=== PATIENT | male | born 1990 | race Caucasian/White ===

== ENCOUNTER 2025-03-29 05:24 | Observation (INO) ==
[2025-03-29] MEDS ORDERED: ULTANE GAS IN ONE (05:25)
[2025-03-29] MEDS ORDERED: PRECEDEX INJ VIAL ONE (05:25)
[2025-03-29] MEDS ORDERED: KETAMINE HCL ONE (05:25)
[2025-03-29 05:40] VITALS: BMI 42.7
--- NOTE | 2025-03-29 05:46 | DR.ABDMALE ---
HPI <Shayna Dennis - Last Filed: 04/04/25 20:39> Time seen Time Seen by Provider: 03/29/25 05:46 PCP Primary Care Physician: AZRA VELAZQUEZ comment HPI Comment: 34 y/o awakened with epigastric pain, n/v at 3AM this morning as below; he's had no sob, significant cough, diarrhea, fever or chills; he denies similar episodes and burping does not help with pain. Complaint Chief Complaint:: PATIENT C/O EPIGASTRIC PAIN ASSOCIATED WITH NAUSEA AND VOMITING. PATIENT STATES HE WAS WOKEN UP WITH THE SEVERE PAIN AT 3 AM. PATIENT ALSO STATES HE IS HAVING CHILLS. PATIENT NOTED TO BE DIAPHORTEIC. COVID-19 Coronavirus risk:travel/contact w/high risk person: No Has patient experienced Coronavirus symptoms: No Mode of arrival Mode of Arrival: Ambulatory Timing Onset of Chief Complaint: 03/29/25 PMH <Shayna Dennis - Last Filed: 04/04/25 20:39> PMH Past Medical History: Yes Past Medical History: Hypertension Past Surgical History: No Family History History of Family Medical Conditions: Yes Family Medical History: Diabetes Mellitus, OR, Coronary Artery Disease and Heart Failure Social History Does any household member use tobacco: No Alcohol Use: None Do you use any recreational Drugs:: No Lives With: Family Lives Where: Home Travel Risk Coronavirus risk:travel/contact w/high risk person: No Has patient experienced Coronavirus symptoms: No Infectious screening In the last 2 months have you had wt loss of >10#?: NO Have you had fever, night sweats or hemotysis?: No Have you traveled outside the country in the last 6 months?: No Isolation: Standard ROS <Shayna Sonny - Last Filed: 04/04/25 20:39> Review of Systems Constitutional: No Symptoms Reported Eyes: No Symptoms Reported ENTM: No Symptoms Reported Respiratoy: No Symptoms Reported Cardiovascular: No Symptoms Reported Neurological: No Symptoms Reported Musculoskeletal: No Symptoms Reported Integumentary: No Symptoms Reported Hematologic/Lymphatic: No Symptoms Reported Endocrine: No Symptoms Reported Psychiatric: No Symptoms Reported PE <Shayna Sonny - Last Filed: 04/04/25 20:39> Vital Signs Vital Signs: Temp Pulse Resp BP Pulse Ox O2 Del Method 03/29/25 10:59 16 03/29/25 09:00 16 03/29/25 08:58 16 03/29/25 07:26 12 03/29/25 07:15 76 03/29/25 07:00 69 10 L 97 03/29/25 06:45 67 15 99 03/29/25 06:30 71 5 L 99 03/29/25 06:30 152/78 03/29/25 06:15 98 H 21 98 03/29/25 06:02 73 34 H 100 03/29/25 06:00 159/93 03/29/25 06:00 159/93 03/29/25 06:00 159/93 03/29/25 05:55 69 24 100 03/29/25 05:50 75 26 H 99 03/29/25 05:37 68 20 100 03/29/25 05:35 173/96 03/29/25 05:35 173/96 03/29/25 05:24 97.8 F 75 20 162/82 98 Room Air General Limitations: No Limitations General Appearance: Alert and In No Apparent Distress Head Head Exam: Normal Inspection Eyes Eye exam: Normal Appearance ENT ENT Exam: Normal Exam Neck Neck Exam: Normal Inspection Chest Chest Inspection: Normal Inspection Respiratory Respiratory Exam: Normal Lung Sounds Bilat Cardiovascular Cardiovascular Exam: Regular Rate and Normal Rhythm Abdominal Exam Abdominal Exam: Normal Inspection and Normal Bowel Sounds Abdominal Tenderness: Epigastrium (mildly tender) Rectal Rectal Exam: Deferred Back Back Exam: Normal Inspection Extremeties Extremities Exam: Normal Inspection Exam: Male: Deferred Neurologic Neurological Exam: Alert and Oriented X3 Psychiatric Psychiatric Exam: Normal Affect and Normal Mood Skin Skin Exam: Warm, Dry, Intact and Normal Color <Minh Muñoz - Last Filed: 03/29/25 11:48> Vital Signs Vital Signs: Temp Pulse Resp BP Pulse Ox O2 Del Method 03/29/25 10:59 16 03/29/25 09:00 16 03/29/25 08:58 16 03/29/25 07:26 12 03/29/25 07:15 76 03/29/25 07:00 69 10 L 97 03/29/25 06:45 67 15 99 03/29/25 06:30 71 5 L 99 03/29/25 06:30 152/78 03/29/25 06:15 98 H 21 98 03/29/25 06:02 73 34 H 100 03/29/25 06:00 159/93 03/29/25 06:00 159/93 03/29/25 06:00 159/93 03/29/25 05:55 69 24 100 03/29/25 05:50 75 26 H 99 03/29/25 05:37 68 20 100 03/29/25 05:35 173/96 03/29/25 05:35 173/96 03/29/25 05:24 97.8 F 75 20 162/82 98 Room Air COURSE <Shayna Dennis - Last Filed: 04/04/25 20:39> Treatment Treatment: 34 y/o with epigastric pain presumably d/t gerd but no relief with protonix and gi cocktail; down for us of gb at this time; care to Dr Muñoz. ROR <Shayna Dennis - Last Filed: 04/04/25 20:39> Labs Reviewed 03/30/25 04:18 03/30/25 04:18 Laboratory: WBC 11.9 X10^3/uL (3.6-10.0) H 03/29/25 05:53 RBC 6.02 X10^6/uL (4.7-6.0) H 03/29/25 05:53 Hgb 18.0 g/dL (13.5-18.0) 03/29/25 05:53 Hct 51.6 % (42.0-54.0) 03/29/25 05:53 MCV 85.7 fL (80.0-100.0) 03/29/25 05:53 MCH 29.8 pg (27.0-34.0) 03/29/25 05:53 MCHC 34.8 g/dL (33.0-35.0) 03/29/25 05:53 RDW 14.0 % (11.6-16.5) 03/29/25 05:53 Plt Count 263 X10^3/uL (150.0-450.0) 03/29/25 05:53 MPV 8.8 fL (7.4-11.0) 03/29/25 05:53 Neut % (Auto) 71.7 % (42.0-75.0) 03/29/25 05:53 Lymph % (Auto) 21.2 % (21.0-51.0) 03/29/25 05:53 Imperial % (Auto) 5.6 % (0.0-13.0) 03/29/25 05:53 Eos % (Auto) 1.1 % (0.9-2.9) 03/29/25 05:53 Baso % (Auto) 0.4 % (0.2-1.0) 03/29/25 05:53 Neut # (Auto) 8.6 x10^3/uL (2.2-4.8) H 03/29/25 05:53 Lymph # (Auto) 2.5 X10^3/uL (1.3-2.9) 03/29/25 05:53 Imperial # (Auto) 0.7 x10^3/uL (0.3-0.8) 03/29/25 05:53 Eos # (Auto) 0.1 x10^3/uL (0.0-0.2) 03/29/25 05:53 Baso # (Auto) 0.0 X10^3/uL (0.0-0.1) 03/29/25 05:53 Absolute Nucleated RBC 0.1 /100WBC 03/29/25 05:53 Sodium 136 mmol/L (136-145) 03/29/25 05:53 Corrected Sodium TNP 03/29/25 05:53 Potassium 4.0 mmol/L (3.5-5.1) 03/29/25 05:53 Chloride 99 mmol/L (98-107) 03/29/25 05:53 Carbon Dioxide 33.9 mmol/L (21-32) H 03/29/25 05:53 BUN 9 mg/dL (7-18) 03/29/25 05:53 Creatinine 1.10 mg/dL (0.70-1.30) 03/29/25 05:53 Est GFR (MDRD) Af Amer > 60 (>60) 03/29/25 05:53 Est GFR (MDRD) Non-Af > 60 (>60) 03/29/25 05:53 Glucose 104 mg/dL (65-99) H 03/29/25 05:53 Calcium 9.5 mg/dL (8.5-10.1) 03/29/25 05:53 Corrected Calcium TNP 03/29/25 05:53 Total Bilirubin 0.20 mg/dL (0.2-1.0) 03/29/25 05:53 AST 23 Units/L (15-37) 03/29/25 05:53 ALT 42 Units/L (12-78) 03/29/25 05:53 Alkaline Phosphatase 74 Units/L (46-116) 03/29/25 05:53 Creatine Kinase 267 Units/L (39-308) 03/29/25 05:53 Troponin I High Sens 5.6 ng/L (4.0-60.0) 03/29/25 05:53 Total Protein 8.2 g/dL (6.4-8.2) 03/29/25 05:53 Albumin 4.5 g/dL (3.4-5.0) 03/29/25 05:53 Globulin 3.7 g/dL (2.5-4.5) 03/29/25 05:53 Albumin/Globulin Ratio 1.2 Ratio (1.1-2.1) 03/29/25 05:53 Lipase 46 Units/L (16-77) 03/29/25 05:53 Tissue Pathology See comment. 03/29/25 13:35 XRAY X-ray Results: pcxr: no acute abnormality abd us: Cholelithiasis without evidence of acute cholecystitis. Nuclear medicine HIDA scan could be obtained for further evaluation if clinical concern for acute cholecystitis. <Minh Muñoz - Last Filed: 03/29/25 11:48> Labs Reviewed Laboratory Results Reviewed?: Yes Laboratory: WBC 11.9 X10^3/uL (3.6-10.0) H 03/29/25 05:53 RBC 6.02 X10^6/uL (4.7-6.0) H 03/29/25 05:53 Hgb 18.0 g/dL (13.5-18.0) 03/29/25 05:53 Hct 51.6 % (42.0-54.0) 03/29/25 05:53 MCV 85.7 fL (80.0-100.0) 03/29/25 05:53 MCH 29.8 pg (27.0-34.0) 03/29/25 05:53 MCHC 34.8 g/dL (33.0-35.0) 03/29/25 05:53 RDW 14.0 % (11.6-16.5) 03/29/25 05:53 Plt Count 263 X10^3/uL (150.0-450.0) 03/29/25 05:53 MPV 8.8 fL (7.4-11.0) 03/29/25 05:53 Neut % (Auto) 71.7 % (42.0-75.0) 03/29/25 05:53 Lymph % (Auto) 21.2 % (21.0-51.0) 03/29/25 05:53 Imperial % (Auto) 5.6 % (0.0-13.0) 03/29/25 05:53 Eos % (Auto) 1.1 % (0.9-2.9) 03/29/25 05:53 Baso % (Auto) 0.4 % (0.2-1.0) 03/29/25 05:53 Neut # (Auto) 8.6 x10^3/uL (2.2-4.8) H 03/29/25 05:53 Lymph # (Auto) 2.5 X10^3/uL (1.3-2.9) 03/29/25 05:53 Imperial # (Auto) 0.7 x10^3/uL (0.3-0.8) 03/29/25 05:53 Eos # (Auto) 0.1 x10^3/uL (0.0-0.2) 03/29/25 05:53 Baso # (Auto) 0.0 X10^3/uL (0.0-0.1) 03/29/25 05:53 Absolute Nucleated RBC 0.1 /100WBC 03/29/25 05:53 Sodium 136 mmol/L (136-145) 03/29/25 05:53 Corrected Sodium TNP 03/29/25 05:53 Potassium 4.0 mmol/L (3.5-5.1) 03/29/25 05:53 Chloride 99 mmol/L (98-107) 03/29/25 05:53 Carbon Dioxide 33.9 mmol/L (21-32) H 03/29/25 05:53 BUN 9 mg/dL (7-18) 03/29/25 05:53 Creatinine 1.10 mg/dL (0.70-1.30) 03/29/25 05:53 Est GFR (MDRD) Af Amer > 60 (>60) 03/29/25 05:53 Est GFR (MDRD) Non-Af > 60 (>60) 03/29/25 05:53 Glucose 104 mg/dL (65-99) H 03/29/25 05:53 Calcium 9.5 mg/dL (8.5-10.1) 03/29/25 05:53 Corrected Calcium TNP 03/29/25 05:53 Total Bilirubin 0.20 mg/dL (0.2-1.0) 03/29/25 05:53 AST 23 Units/L (15-37) 03/29/25 05:53 ALT 42 Units/L (12-78) 03/29/25 05:53 Alkaline Phosphatase 74 Units/L (46-116) 03/29/25 05:53 Creatine Kinase 267 Units/L (39-308) 03/29/25 05:53 Troponin I High Sens 5.6 ng/L (4.0-60.0) 03/29/25 05:53 Total Protein 8.2 g/dL (6.4-8.2) 03/29/25 05:53 Albumin 4.5 g/dL (3.4-5.0) 03/29/25 05:53 Globulin 3.7 g/dL (2.5-4.5) 03/29/25 05:53 Albumin/Globulin Ratio 1.2 Ratio (1.1-2.1) 03/29/25 05:53 Lipase 46 Units/L (16-77) 03/29/25 05:53 Tissue Pathology See comment. 03/29/25 13:35 Opioid <Shayna Dennis - Last Filed: 04/04/25 20:39> Opioid Risk Tool Age (Damien box if 16-45): Yes History of Preadolescent Sexual Abuse: No Total: 1 Total Score Risk Category: Low Risk Copyright: Mario Alberto CROOK predicting aberrant behaviors <Minh Muñoz - Last Filed: 03/29/25 11:48> Opioid Risk Tool Total: 1 Total Score Risk Category: Low Risk Discharge Plan Diagnosis Discharge Problem: Cholelithiasis Discharge Plan Patient Disposition: ADMITTED INPATIENT Condition: Stable Orders to Discharge Patient Discharge Orders: Discharge (Routine); Ordered 03/30/25 Ordered By: ABENA PADILLA ADDITIONAL NOTES <Minh Toni - Last Filed: 03/29/25 11:48> Additional Notes Additional Notes: Spoke with Dr Padilla who agrees to take pt to surgery. Requests pt receive abx and make NPO.
[2025-03-29] MEDS ORDERED: PROTONIX INJ 40 MG VIAL ONE (05:47)
[2025-03-29] MEDS ORDERED: ZOFRAN INJ 4 MG VIAL ONE (05:47)
[2025-03-29] MEDS: ZOFRAN INJ 4 MG VIAL IVP ONE ×4 (05:57→10:59)
[2025-03-29] MEDS: PROTONIX INJ 40 MG VIAL IVP ONE (05:57)
--- NOTE | 2025-03-29 05:58 | EKG ---
Test Reason : epigastric pain Blood Pressure : */* mmHG Vent. Rate : 67 BPM Atrial Rate : 67 BPM P-R Int : 170 ms QRS Dur : 102 ms QT Int : 350 ms P-R-T Axes : 22 17 20 degrees QTc Int : 369 ms Normal sinus rhythm with sinus arrhythmia Normal ECG No previous ECGs available Confirmed by Jonathan Noguera MD ([id number]) on 03/29/2025 6:05:54 AM Referred By: Confirmed By: Jonathan Noguera MD
[2025-03-29 06:01] LABS: MEAN PLATELET VOLUME 8.8 fL (7.4-11.0); RED CELL DISTRIBUTION WIDTH 14.0 % (11.6-16.5)
[2025-03-29 06:17] LABS: CREATININE 1.10 mg/dL (0.70-1.30); eGFR NON BLACK RACES > 60 (>60)
[2025-03-29] MEDS: LEVSIN/MAALOX/LIDOC VISC PO ONE (07:26)
[2025-03-29] MEDS: MORPHINE SULFATE INJ 4 MG IVP ONE ×2 (08:58→10:59)
--- NOTE | 2025-03-29 10:32 | US ---
EXAM: GALL BLADDER HISTORY: epistric pain, n/v; EPIGASTRIC PAIN, N/V COMPARISON: None TECHNIQUE: Multiple king scale and color flow Doppler images of the right upper quadrant were obtained. FINDINGS: The liver is normal in size and increased in echotexture. Focal fatty sparing along the gallbladder fossa. No focal identifiable hepatic mass or intrahepatic biliary ductal dilatation. Cholelithiasis. No gallbladder wall thickening or pericholecystic fluid. The sonographic Monique's sign is reported as negative by the manager contact. The common bile duct is unremarkable measuring 0.3 cm. Limited visualized portions of the pancreas and IVC are unremarkable. The right kidney appears normal in size measuring up to 12.0 cm. No stones or hydronephrosis. IMPRESSION: Cholelithiasis without evidence of acute cholecystitis. Nuclear medicine HIDA scan could be obtained for further evaluation if clinical concern for acute cholecystitis. THIS IS AN ELECTRONICALLY VERIFIED FINAL REPORT 03/29/2025 10:28 AM - Electronically signed by Jeremy Bowden MD
[2025-03-29] MEDS: NS 1,000 ML IV 1,000 ML IV ONE (10:58)
[2025-03-29] MEDS: ZOSYN VIAL 3.375 GRAMS 3.375 G in NS 100 ML IV 100 ML IV ONE (10:59)
[2025-03-29] MEDS: NS 250 ML IV 25 ML IV PRN (11:03)
[2025-03-29] MEDS: DIPRIVAN VIAL 20 ML ONE (11:43)
[2025-03-29] MEDS: VERSED ONE (11:43)
[2025-03-29] MEDS: FENTANYL VIAL INJ 100 mcg ONE ×2 (11:43→12:47)
[2025-03-29] MEDS: BRIDION ONE (11:43)
[2025-03-29] MEDS: ZOFRAN INJ 4 MG VIAL ONE (11:43)
[2025-03-29] MEDS: OFIRMEV IV 1000 MG VIAL 1,000 MG/100 ML VIAL IV ONE (11:43)
[2025-03-29] MEDS: DECADRON INJ ONE (11:43)
[2025-03-29] MEDS: ZEMURON 100 MG VIAL ONE (11:43)
[2025-03-29] MEDS: REGLAN INJ 10 MG VIAL ONE (11:43)
[2025-03-29] MEDS: PEPCID 20 MG VIAL ONE (11:53)
[2025-03-29] MEDS: LR 1,000 ML IV 1,200 ML IV PRN (12:00)
[2025-03-29] MEDS: ZOFRAN INJ 4 MG VIAL IVP PRN ×2 (12:00→22:12)
[2025-03-29] MEDS: REGLAN INJ 10 MG VIAL IVP PRN (12:00)
[2025-03-29] MEDS: PEPCID 20 MG VIAL IVP PRN (12:00)
[2025-03-29] MEDS: TORADOL 30 MG VIAL ONE (12:09)
[2025-03-29] MEDS: VERSED IVP PRN (12:19)
[2025-03-29] MEDS: LR 1,000 ML IV 1,000 ML IV ONE ×2 (12:24→13:28)
[2025-03-29] MEDS: DIPRIVAN VIAL 180 ML IVP PRN (12:36)
[2025-03-29] MEDS ORDERED: XYLOCAINE 2 % (PLAIN) PRN (12:36)
[2025-03-29] MEDS: PRECEDEX INJ VIAL IVP PRN (12:41)
[2025-03-29] MEDS: KETAMINE HCL IV PRN (12:41)
[2025-03-29] MEDS: DECADRON INJ IVP PRN (12:45)
[2025-03-29] MEDS: BACTROBAN TOPICAL OINT ONE (12:45)
[2025-03-29] MEDS: MARCAINE 0.5% ONE (12:45)
[2025-03-29] MEDS: TORADOL 30 MG VIAL IVP PRN (12:52)
[2025-03-29] MEDS: FENTANYL VIAL INJ 100 mcg IVP PRN (13:01)
[2025-03-29] MEDS: DILAUDID INJ ONE (13:10)
[2025-03-29] MEDS: OFIRMEV IV 1000 MG VIAL 1,000 MG/100 ML VIAL IV PRN (13:29)
--- NOTE | 2025-03-29 13:29 | RAD ---
EXAM: CHEST, 1 VIEW HISTORY: Pre-OP; COMPARISON: Chest x-ray dated 2021 FINDINGS: The trachea is midline. The cardiac silhouette is unremarkable. The lungs are clear without focal infiltrate or effusion. The bony thorax is unremarkable. IMPRESSION: No acute cardiopulmonary disease. THIS IS AN ELECTRONICALLY VERIFIED FINAL REPORT 03/29/2025 1:25 PM - Electronically signed by Woodrow Dobbs MD
[2025-03-29] MEDS: ZEMURON 100 MG VIAL IVP PRN (13:34)
[2025-03-29] MEDS ORDERED: DILAUDID INJ IVP PRN (13:45)
[2025-03-29] MEDS ORDERED: BARHEMSYS INJ IVP PRN (13:45)
[2025-03-29] MEDS ORDERED: BENADRYL INJ 50 MG VIAL IVP PRN (13:45)
[2025-03-29] MEDS: BRIDION IVP PRN (13:47)
[2025-03-29] MEDS ORDERED: DERMOPLAST PAIN RELIEF SPRAY TOP PRN (14:58)
[2025-03-29] MEDS: D5 1/2 NS 1,000 ML 1,000 ML IV SCH (15:16)
[2025-03-29] MEDS: ANCEF VIAL 1 GRAM 1 G in NS 100 ML IV 100 ML IV SCH (15:17)
[2025-03-29] MEDS: MORPHINE SULFATE INJ 2 MG INJ IVP PRN (22:13)
[2025-03-30 04:42] LABS: MEAN PLATELET VOLUME 9.3 fL (7.4-11.0); RED CELL DISTRIBUTION WIDTH 13.7 % (11.6-16.5)
[2025-03-30 04:52] LABS: COR NA(FOR HYPERGLY) 133 mmol/L (136-145); CREATININE 0.89 mg/dL (0.70-1.30); eGFR NON BLACK RACES > 60 (>60)
[2025-03-30 08:29] VITALS: BP 131/66; PULSE 92; RESP 19; TEMP 97.9; O2SAT 95
== END 2025-03-30 10:40 | disposition home or self-care (01) ==
LOC: SUPCPDRO → ER 05:24 → MED/SURG 05:24
PROVIDERS: ADMIT Surgery; ATTEND Surgery
DX: R10.13 Epigastric pain; K82.1 Hydrops of gallbladder; K80.01 Calculus of gallbladder with acute cholecystitis with obstruction; E87.1 Hypo-osmolality and hyponatremia; R11.2 Nausea with vomiting, unspecified; I10 Essential (primary) hypertension; R10.11 Right upper quadrant pain; Z01.811 Encounter for preprocedural respiratory examination; D72.828 Other elevated white blood cell count; Z59.89 Other problems related to housing and economic circumstances